=== PATIENT | male | born 1945 | race Hispanic/Latino ===

== ENCOUNTER 2019-03-23 21:01 | Emergency (ER) | payer OTHER ==
[2019-03-23] MEDS ORDERED: ONDANSETRON HCL 4 MG/2 ML VIAL ONE (21:51)
[2019-03-23] MEDS ORDERED: SODIUM CHLORIDE 0.9% 1000ML 1,000 ML IV ONE (21:52)
[2019-03-23] MEDS ORDERED: SODIUM CHLORIDE 0.9% 500ML 500 ML IV ONE (21:52)
[2019-03-23] MEDS ORDERED: FAMOTIDINE/PF 20 MG/2 ML VIAL IV ONE (21:52)
[2019-03-23 21:56] LABS: BASOPHILS % (AUTO) 0.8 % (0.0-5.0); EOSINOPHILS % (AUTO) 0.1 % (0.0-8.0); HEMATOCRIT 47.8 % (42-54); LYMPHOCYTES % (AUTO) 9.9 % (21.0-51.0); MEAN CORPUSCULAR HGB CONC 33.2 g/dL (32.0-36.0); MEAN CORPUSCULAR VOLUME 87.5 fL (79-99); MONOCYTES % (AUTO) 10.6 % (3.0-13.0); NEUTROPHILS % (AUTO) 78.6 % (40.0-77.0); PLATELET COUNT (AUTO) 277 K/uL (130-400); RED BLOOD CELL COUNT(AUTO) 5.46 MIL/uL (4.50-6.20); RED CELL DISTRIBUTION WIDTH 14.5 % (11.0-15.5)
[2019-03-23 22:09] LABS: CREATININE 0.8 mg/dL (0.5-1.5); POTASSIUM 3.8 mmol/L (3.5-5.1)
[2019-03-23 22:13] LABS: ALBUMIN 3.9 g/dL (3.5-5.0); BILIRUBIN,TOTAL 0.5 mg/dL (0.2-1.0); TOTAL PROTEIN, SERUM 7.4 g/dL (6.0-8.3)
[2019-03-23 23:07] LABS: APPEARANCE,URINE Clear (CLEAR); BILIRUBIN,URINE Negative (NEGATIVE); GLUCOSE, URINE (UA) Negative (NEGATIVE); KETONES,URINE Trace mg/dL (NEGATIVE); LEUKOCYTE ESTERASE ,URINE Negative (NEGATIVE); NITRATE,URINE Negative (NEGATIVE); OCCULT BLOOD,URINE Negative (NEGATIVE); PROTEIN,URINE Negative (NEGATIVE)
[2019-03-23 23:11] LABS: COLOR,URINE YELLOW (YELLOW)
[2019-03-23] MEDS ORDERED: BISACODYL 10 MG SUPP.RECT RC ONE (23:46)
[2019-03-23] MEDS ORDERED: AMOXICILLIN/POTASSIUM CLAV 875-125 TABLET PO ONE (23:47)
== END 2019-03-24 00:05 | disposition home or self-care (01) ==
LOC: EDH 21:01
DX: R10.84 Generalized abdominal pain (principal); R50.9 Fever, unspecified; I10 Essential (primary) hypertension; E11.9 Type 2 diabetes mellitus without complications; Z79.899 Other long term (current) drug therapy
CPT/HCPCS: 36415; 74021; 80053; 81003; 83690; 85025; 96374; 96375; 99285; J2405; J3490; J7030; J7040

== ENCOUNTER 2022-04-05 07:05 | Day surgery (SDC) | payer MEDICARE ==
[2022-04-03 10:58] VITALS: BP 148/81
[2022-04-05] VITALS (15 sets, daily range): BP systolic 117–179; BP diastolic 64–85
[~2022-04-05] VITALS: Ht 170.2 cm; Wt 95.3 kg
[~2022-04-05 07:05] MED LIST: 0.9%NACL 1000ML 1,000 ML IV ONE; AEC81 PO; CEFAZOLIN SODIUM 1 GM VIAL IVP SCH; FINA5TAB41 PO; FISH1CAP63 PO; GABA300C PO; LISI20TA24 PO; METF-444 PO; NIAC1CAP PO; ROSU40TA21 PO
[2022-04-05] MEDS ORDERED: SUCCINYLCHOLINE CHLORIDE 20 MG/ML 10 ML VIAL ONE (08:38)
[2022-04-05] MEDS ORDERED: PROPOFOL 10 MG/ML 20ML VIAL IV ONE (08:38)
[2022-04-05] MEDS ORDERED: FENTANYL CITRATE PF 50 MCG/1 ML 2ML VIAL ONE (08:39)
[2022-04-05] MEDS ORDERED: ROCURONIUM 10MG/1ML SYR 10 MG/ML ML ONE (08:39)
[2022-04-05] MEDS ORDERED: MIDAZOLAM HCL 1 MG/ML 2ML VIAL ONE (08:39)
[2022-04-05] MEDS ORDERED: CEFAZOLIN SODIUM 2 GM VIAL IV ONE (08:40)
[2022-04-05] MEDS ORDERED: TRANEXAMIC ACID 1000MG/10ML ONE (09:01)
[2022-04-05] MEDS ORDERED: GLYCOPYRROLATE 1 MG/5 ML SYRINGE ONE (09:32)
[2022-04-05] MEDS ORDERED: NEOSTIGMINE 5MG/5ML SYR IV ONE (09:32)
[2022-04-05] MEDS ORDERED: CEPH500B PO (09:49)
[2022-04-05] MEDS ORDERED: IBUP-2070 PO (09:49)
[2022-04-05] MEDS ORDERED: ACET-2079 PO (09:49)
[2022-04-05] MEDS ORDERED: MEPERIDINE-PF 25 MG/ML SYG ONE (10:18)
[2022-04-05] MEDS ORDERED: IOHEXOL-350 50ML VIAL IV ONE (11:24)
[2022-04-05] MEDS ORDERED: IOHEXOL 350 MG/ML 100ML INFUS..BTL IV ONE (11:24)
== END 2022-04-05 12:00 | disposition home or self-care (01) ==
LOC: DAH 07:05
PROVIDERS: ATTEND Orthopaedic Surgery
DX: M23.321 Other meniscus derangements, posterior horn of medial meniscus, right knee (principal); M17.11 Unilateral primary osteoarthritis, right knee; M22.41 Chondromalacia patellae, right knee; I10 Essential (primary) hypertension; I25.10 Atherosclerotic heart disease of native coronary artery without angina pectoris; E11.9 Type 2 diabetes mellitus without complications; E66.9 Obesity, unspecified; Z90.49 Acquired absence of other specified parts of digestive tract; Z98.890 Other specified postprocedural states; Z95.5 Presence of coronary angioplasty implant and graft; Z79.82 Long term (current) use of aspirin; Z79.84 Long term (current) use of oral hypoglycemic drugs; Z79.899 Other long term (current) drug therapy
CPT/HCPCS: 87426; 29881; 82948 ×2; A4663; J7120; A4649 ×2; J0690 ×2; J3010; J3490 ×2; J2710; J0330; J7030; J2250; J2704; J2175; Q9967 ×2; A6223; A4930; A5120; A4215; A4223; A4222; A4221; A6450

== ENCOUNTER 2022-10-27 05:52 | Day surgery (SDC) | payer MEDICARE ==
[2022-10-25 15:37] VITALS: BP 141/84
[2022-10-25 15:39] LABS: BASOPHILS % (AUTO) 1.3 % (0.0-5.0); EOSINOPHILS % (AUTO) 1.4 % (0.0-8.0); HEMATOCRIT 43.7 % (42-54); LYMPHOCYTES % (AUTO) 26.8 % (21.0-51.0); MEAN CORPUSCULAR HEMOGLOBIN 28.1 pg (27.0-33.0); MEAN CORPUSCULAR HGB CONC 32.3 g/dL (32.0-36.0); MEAN CORPUSCULAR VOLUME 87.2 fL (79-99); MONOCYTES % (AUTO) 12.6 % (3.0-13.0); NEUTROPHILS % (AUTO) 57.6 % (40.0-77.0); PLATELET COUNT (AUTO) 236 K/uL (130-400); RED BLOOD CELL COUNT(AUTO) 5.01 MIL/uL (4.50-6.20); RED CELL DISTRIBUTION WIDTH 13.6 % (11.0-15.5)
[2022-10-25 15:50] LABS: ALBUMIN 3.6 g/dL (3.5-5.0); CARBON DIOXIDE 28 mmol/L (21-32); CHLORIDE 103 mmol/L (101-111); CREATININE 0.9 mg/dL (0.5-1.5); GLOMERULAR FILTR. RATE CALC 87 mL/min (>60); GLUCOSE,RANDOM 104 mg/dL (70-105); SODIUM SERUM 138 mmol/L (136-145); UREA NITROGEN, BLOOD 13 mg/dL (7-18)
[2022-10-25 16:08] LABS: CRP QUANTITATIVE < 2.00 mg/L (0.00-9.0)
[~2022-10-27] VITALS: Ht 170.2 cm; Wt 93.9 kg
[2022-10-27] VITALS (17 sets, daily range): BP systolic 102–160; BP diastolic 56–101
[~2022-10-27 05:52] MED LIST changes: -0.9%NACL 1000ML 1,000 ML IV ONE; -CEFAZOLIN SODIUM 1 GM VIAL IVP SCH; +CEFAZOLIN SODIUM 2 GM VIAL IVPB SCH; +EPINEPHRINE PF 1MG (1:1,000) 1 MG/ML AMP ONE; -GABA300C PO; +ROPIVACAINE 0.5% 5MG/ML 30ML IJ ONE; +ROSU20TA31 PO; -ROSU40TA21 PO
[2022-10-27] MEDS ORDERED: DEXAMETHASONE SOD PHOSPHATE 10MG/ML 1ML VIAL ONE (06:37)
[2022-10-27] MEDS ORDERED: SUCCINYLCHOLINE CHLORIDE 20 MG/ML 10 ML VIAL ONE (06:37)
[2022-10-27] MEDS ORDERED: LIDOCAINE PF 100MG/5ML (2%) SYRINGE 5ML ONE (06:37)
[2022-10-27] MEDS ORDERED: GLYCOPYRROLATE 1 MG/5 ML SYRINGE ONE (06:37)
[2022-10-27] MEDS ORDERED: ONDANSETRON 4MG INJ ONE (06:38)
[2022-10-27] MEDS ORDERED: MIDAZOLAM HCL 1 MG/ML 2ML VIAL ONE (06:38)
[2022-10-27] MEDS ORDERED: FENTANYL CITRATE PF 50 MCG/1 ML 2ML VIAL ONE (06:38)
[2022-10-27] MEDS ORDERED: PROPOFOL 10 MG/ML 20ML VIAL IV ONE (06:38)
[2022-10-27] MEDS ORDERED: ROCURONIUM 10MG/1ML SYR 10 MG/ML ML ONE (06:38)
[2022-10-27] MEDS ORDERED: NEOSTIGMINE 5MG/5ML SYR IV ONE (06:38)
[2022-10-27] MEDS ORDERED: 0.9%NACL 1000ML 1,000 ML IV ONE (06:38)
[2022-10-27] MEDS ORDERED: PHENYLEPHRINE HCL 10 MG/ML 1ML VIAL IV ONE ×2 (07:04→09:08)
[2022-10-27] MEDS ORDERED: CEFAZOLIN SODIUM 2 GM VIAL IVPB ONE (07:36)
[2022-10-27] MEDS ORDERED: EPINEPHRINE PF 1MG (1:1,000) 1 MG/ML AMP IVP ONE (07:44)
[2022-10-27] MEDS ORDERED: HYDR-4060 PO (09:46)
== END 2022-10-27 11:52 | disposition home or self-care (01) ==
LOC: DAH 05:52
PROVIDERS: ATTEND Student in an Organized Health Care Education/Training Program
DX: M75.121 Complete rotator cuff tear or rupture of right shoulder, not specified as traumatic (principal); Z20.822 Contact with and (suspected) exposure to COVID-19; M19.011 Primary osteoarthritis, right shoulder; M75.41 Impingement syndrome of right shoulder; M94.211 Chondromalacia, right shoulder; I10 Essential (primary) hypertension; I25.10 Atherosclerotic heart disease of native coronary artery without angina pectoris; E11.9 Type 2 diabetes mellitus without complications; Z79.82 Long term (current) use of aspirin; Z79.01 Long term (current) use of anticoagulants; Z79.899 Other long term (current) drug therapy
CPT/HCPCS: 82040; 80048; 85025; 84134; 86140; 87426; 36415; 29827; 64415; 29826; 82948 ×2; A6207; J7030 ×2; A4565; J3010; J3490; J1100; J2710; J0330; J2001; J0171 ×2; J2250; J2704; J2405; J2795; J2370 ×2; J0690 ×2; C1769; C1713; A5120; A4215; A4223; A4222; A4221; A4663; A4510

== ENCOUNTER 2023-01-10 19:19 | Emergency (ER) | payer MEDICARE, OTHER ==
[~2023-01-10] VITALS: Ht 170.2 cm; Wt 95.7 kg
[~2023-01-10 19:19] MED LIST changes: -CEFAZOLIN SODIUM 2 GM VIAL IVPB SCH; -EPINEPHRINE PF 1MG (1:1,000) 1 MG/ML AMP ONE; +HYDR-4060 PO; -ROPIVACAINE 0.5% 5MG/ML 30ML IJ ONE
[2023-01-10] MEDS ORDERED: 0.9%NACL 1000ML 1,000 ML IV ONE ×2 (20:16→20:30)
[2023-01-10 20:22] LABS: EOSINOPHILS % (AUTO) 1.1 % (0.0-8.0); HEMATOCRIT 41.9 % (42-54); LYMPHOCYTES % (AUTO) 15.1 % (21.0-51.0); MEAN CORPUSCULAR HEMOGLOBIN 28.6 pg (27.0-33.0); MEAN CORPUSCULAR HGB CONC 32.7 g/dL (32.0-36.0); MEAN CORPUSCULAR VOLUME 87.5 fL (79-99); MONOCYTES % (AUTO) 7.6 % (3.0-13.0); NEUTROPHILS % (AUTO) 74.5 % (40.0-77.0); PLATELET COUNT (AUTO) 248 K/uL (130-400); RED BLOOD CELL COUNT(AUTO) 4.79 MIL/uL (4.50-6.20); RED CELL DISTRIBUTION WIDTH 13.4 % (11.0-15.5); WHITE BLOOD COUNT (AUTO) 9.2 K/uL (4.8-10.8)
[2023-01-10 20:35] LABS: CREATININE 1.6 mg/dL (0.5-1.5)
[2023-01-10 20:43] LABS: ALBUMIN 3.7 g/dL (3.5-5.0); TOTAL PROTEIN, SERUM 6.9 g/dL (6.0-8.3)
[2023-01-10 23:09] VITALS: BP 110/54
== END 2023-01-10 23:10 | disposition home or self-care (01) ==
LOC: EDH 19:19
DX: I95.9 Hypotension, unspecified (principal); T44.6X1A Poisoning by alpha-adrenoreceptor antagonists, accidental (unintentional), initial encounter; I10 Essential (primary) hypertension; E11.9 Type 2 diabetes mellitus without complications; I25.2 Old myocardial infarction; Z79.899 Other long term (current) drug therapy; Y92.89 Other specified places as the place of occurrence of the external cause
CPT/HCPCS: 99285; 96360; 84484; 80053; 85025; 36415; J7030

== ENCOUNTER 2023-08-24 01:00 | Emergency (ER) | payer OTHER ==
[~2023-08-24] VITALS: Ht 167.6 cm; Wt 96.2 kg
[~2023-08-24 01:00] MED LIST changes: -ROSU20TA31 PO; +ROSU20TA73 PO
[2023-08-24 01:03] VITALS: BP 122/42; PULSE 83; RESP 18
[2023-08-24] MEDS ORDERED: HYDROXYZINE 25 MG TABLET PO ONE (02:30)
[2023-08-24] MEDS ORDERED: KETOROLAC 60 MG VIAL (30MG/ML) IM ONE (02:30)
[2023-08-24] MEDS ORDERED: PREG25 PO (02:35)
[2023-08-24] MEDS ORDERED: HYDR50CA50 PO (02:35)
== END 2023-08-24 02:53 | disposition home or self-care (01) ==
LOC: EDH 01:00
DX: B02.9 Zoster without complications (principal); M79.2 Neuralgia and neuritis, unspecified; E11.9 Type 2 diabetes mellitus without complications; E78.00 Pure hypercholesterolemia, unspecified; I10 Essential (primary) hypertension; I25.2 Old myocardial infarction; Z79.82 Long term (current) use of aspirin; Z79.84 Long term (current) use of oral hypoglycemic drugs; Z79.899 Other long term (current) drug therapy; Z95.5 Presence of coronary angioplasty implant and graft; Z95.810 Presence of automatic (implantable) cardiac defibrillator
CPT/HCPCS: 99283; 96372; J1885

== ENCOUNTER 2023-12-05 00:14 | Emergency (ER) | payer OTHER ==
[~2023-12-05] VITALS: Ht 167.6 cm; Wt 96.6 kg
[~2023-12-05 00:14] MED LIST changes: +HYDR50CA50 PO; +PREG25 PO
[2023-12-05] MEDS: KETOROLAC 30MG VIAL (30MG/ML) IM ONE (01:06)
[2023-12-05] MEDS: LIDOCAINE HCL 2% VISCOUS 15 ML UDCUP PO ONE (01:06)
[2023-12-05] MEDS: ACETAMINOPHEN WITH CODEINE 1 TAB TAB PO ONE (01:06)
[2023-12-05 01:15] VITALS: BP 142/72; PULSE 68; RESP 16; O2SAT 99
== END 2023-12-05 01:22 | disposition home or self-care (01) ==
LOC: EDH 00:14
DX: K08.409 Partial loss of teeth, unspecified cause, unspecified class (principal); K08.89 Other specified disorders of teeth and supporting structures; E11.9 Type 2 diabetes mellitus without complications; E78.00 Pure hypercholesterolemia, unspecified; I10 Essential (primary) hypertension; I25.2 Old myocardial infarction; Z79.82 Long term (current) use of aspirin; Z79.84 Long term (current) use of oral hypoglycemic drugs; Z79.899 Other long term (current) drug therapy; Z95.5 Presence of coronary angioplasty implant and graft; Z95.810 Presence of automatic (implantable) cardiac defibrillator
CPT/HCPCS: 99283; 96372; J1885